=== PATIENT | female | born 1940 | race Caucasian/White ===

== ENCOUNTER 2022-11-26 23:18 | Emergency (ER) | payer MEDICARE, MEDICAID | END 2022-11-27 01:15 | LOC: JD.ED 23:18 | DX: M25.552 Pain in left hip (principal) | CPT/HCPCS: 73502-26-LT; 73502-LT; 99283; 99284 ==

== ENCOUNTER 2023-03-15 08:43 | Emergency (ER) | payer MEDICARE, MEDICAID ==
[2023-03-15] MEDS ORDERED: Sodium Chloride 0.9% 500 ML IV ONE (08:52)
[2023-03-15 09:36] LABS: BASOPHILS ABSOLUTE AUTO 0.04 K/mm3 (0.01-0.08); BASOPHILS PERCENT AUTO 0.3 % (0.1-1.2); EOSINOPHILS PERCENT AUTO 0 (0.7-5.8); HEMATOCRIT 59.6 % (34.1-44.9); HEMOGLOBIN 17.8 gm/dl (11.2-15.7); IMMATURE GRAN ABSOLUTE AUTO 0.04 K/mm3 (0.00-0.10); IMMATURE GRAN PERCENT AUTO 0.3 % (<=1.0); LYMPHOCYTES ABSOLUTE AUTO 2.96 K/mm3 (1.18-3.74); LYMPHOCYTES PERCENT AUTO 21.2 % (19.3-51.7); MEAN CORPUSCULAR HEMOGLOBIN 28.4 pg (25.6-32.2); MEAN CORPUSCULAR HGB CONC 29.9 g/dl (32.2-35.5); MEAN CORPUSCULAR VOLUME 95.2 fl (79.4-94.8); MEAN PLATELET VOLUME 11.6 fl (9.4-12.3); MONOCYTES PERCENT AUTO 8.6 % (4.7-12.5); NEUTROPHILS ABSOLUTE AUTO 9.74 K/mm3 (1.56-6.13); NEUTROPHILS PERCENT AUTO 69.6 % (34.0-71.1); PLATELET COUNT,PLT 322 K/mm3 (182-369); RED BLOOD CELL COUNT 6.26 M/mm3 (3.98-5.22); WHITE BLOOD CELL COUNT,WBC 13.98 K/mm3 (3.98-10.04)
[2023-03-15 10:01] LABS: A/G RATIO 0.8 (1-2); ALBUMIN 3.8 g/dl (3.4-5.0); ANION GAP 15.3 (5-15); BILIRUBIN TOTAL 0.5 mg/dL (0.2-1.0); BUN/CREATININE RATIO 33.5 (14-18); CALCIUM 9.5 mg/dL (8.5-10.1); CREATININE 1.7 mg/dL (0.55-1.02); EST CRCL DRUG DOSING (CG) 20.01 mL/min; POTASSIUM,K 4.3 mEq/L (3.5-5.1); PROTEIN TOTAL,TP 8.3 g/dl (6.4-8.2)
[2023-03-15 11:09] LABS: APPEARANCE,URINE CLOUDY (Clear); BILIRUBIN,URINE NEGATIVE (Negative); COLOR,URINE YELLOW (Yellow); GLUCOSE,URINE 3+ (Negative); KETONES,URINE NEGATIVE (Negative); LEUKOCYTE ESTERASE,URINE 3+ (Negative); NITRITE,URINE POSITIVE (Negative); OCCULT BLOOD,URINE TRACE-INTACT (Negative); PH,URINE >=9.0 (5.0-8.0); PROTEIN,URINE 2+ (Negative); UROBILINOGEN,URINE 0.2 (0.2-1.0)
[2023-03-15 11:24] LABS: WBC,URINE TOO NUMEROUS TO CNT /hpf (0-5)
[2023-03-15 11:25] LABS: AMORPHOUS SEDIMENT,URINE MODERATE /hpf (NOT SEEN); BACTERIA,URINE MANY /hpf (FEW); EPITHELIAL CELLS,URINE NOT SEEN /hpf (0-5); MUCUS,URINE MANY /hpf (FEW)
[2023-03-15 11:28] LABS: CALCIUM OXALATE CRYSTALS,URINE FEW
[2023-03-15] MEDS ORDERED: cefTRIAXone 1 GM in Sodium Chloride 0.9% 100 ML IV ONE (11:56)
== END 2023-03-15 14:05 | disposition other institution (70) ==
LOC: SUPCPDRO 08:43 → JD.ED 08:43
DX: N39.0 Urinary tract infection, site not specified (principal); E87.0 Hyperosmolality and hypernatremia; E78.00 Pure hypercholesterolemia, unspecified; I10 Essential (primary) hypertension; K21.9 Gastro-esophageal reflux disease without esophagitis; E11.9 Type 2 diabetes mellitus without complications; E03.9 Hypothyroidism, unspecified; Z79.899 Other long term (current) drug therapy
CPT/HCPCS: 36415; 51701; 71045; 80053; 81001; 83605; 85025; 87040; 93005; 96365; 99285; J0696; J3490; J7030; 93010